=== PATIENT | male | born 1990 | race Caucasian/White ===

== ENCOUNTER 2016-11-12 20:50 | Emergency (ER) | payer BC, OTHER ==
--- NOTE | 2016-11-12 20:58 | PDOC ---
History of Present Illness - General History Source: Patient Exam Limitations: No Limitations - History of Present Illness Initial Comments: 11/12/16 21:07 The patient is a 25 year old male, with no significant past medical history, who presents to the emergency room with a laceration on the 2nd finger of the right hand prior to arrival. The patient states he was doing dishes and cut his 2nd finger on a knife in the sink. The patient states the bleeding was controlled prior to ED arrival and denies he is in any pain. 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 He denies numbness or loss of sensation. He denies loss of consciousness, headache or dizziness. He denies recent nausea or vomit. He denies chest pain or shortness of breath. Allergies: NKA PCP: Patient reports he does not have a primary doctor. <Yinka Mariscal - Last Filed: 11/12/16 21:18> <Corine Salazar - Last Filed: 11/12/16 21:37> - General Chief Complaint: Laceration Stated Complaint: RT 2ND FINGER LACERATION Time Seen by Provider: 11/12/16 20:58 Past History <Yinka Mariscal - Last Filed: 11/12/16 21:18> <Corine Salazar - Last Filed: 11/12/16 21:37> - Past Medical History Allergies/Adverse Reactions: Allergies Allergy/AdvReac Type Severity Reaction Status Date / Time No Known Allergies Allergy Verified 11/12/16 20:53 Home Medications: Ambulatory Orders Cephalexin Monohydrate [Keflex -] 500 mg PO BID #8 capsule 11/12/16 Review of Systems - Review of Systems Comments:: 11/12/16 21:18 GENERAL/CONSTITUTIONAL: No fever or chills. No weakness. HEAD, EYES, EARS, NOSE AND THROAT: No change in vision. No ear pain or discharge. No sore throat. CARDIOVASCULAR: No chest pain or shortness of breath. RESPIRATORY: No cough, wheezing, or hemoptysis. GASTROINTESTINAL: No nausea, vomiting, diarrhea or constipation. GENITOURINARY: No dysuria, frequency, or change in urination. MUSCULOSKELETAL: No joint or muscle swelling or pain. No neck or back pain. SKIN: No rash NEUROLOGIC: No headache, vertigo, loss of consciousness, or change in strength/ sensation. ENDOCRINE: No increased thirst. No abnormal weight change. HEMATOLOGIC/LYMPHATIC: No anemia, easy bleeding, or history of blood clots. ALLERGIC/IMMUNOLOGIC: No hives or skin allergy. <Yinka Mariscal - Last Filed: 11/12/16 21:18> *Physical Exam - Vital Signs Last Vital Signs Temp Pulse Resp BP Pulse Ox 98.5 F 74 18 121/79 99 11/12/16 20:50 11/12/16 20:50 11/12/16 20:50 11/12/16 20:50 11/12/16 20:50 - Physical Exam Comments: 11/12/16 21:18 GENERAL: Awake, alert, and fully oriented, in no acute distress HEAD: No signs of trauma EYES: PERRLA, EOMI, sclera anicteric, conjunctiva clear ENT: Auricles normal inspection, hearing grossly normal, nares patent, oropharynx clear without exudates. Moist mucosa NECK: Normal ROM, supple, no lymphadenopathy, JVD, or masses EXTREMITIES: +Laceration on 2nd finger of right hand. Normal range of motion, no edema. No clubbing or cyanosis. NEUROLOGICAL: Cranial nerves II through XII grossly intact. Normal speech, normal gait SKIN: Warm, Dry, normal turgor, no rashes or lesions noted. <Yinka Mariscal - Last Filed: 11/12/16 21:18> Medical Decision Making - Medical Decision Making 11/12/16 21:34 Pt cut his right index finger while washing a knife that he had been cutting veggies with. He has a linear laceration at the lateral distal aspect of the 2nd finger. Pt has a 1cm lac. No active bleed. Pt is refusing suture repair. We will place it in a fingersplint immobilization; bacitracin and keflex and XR is normal; no bony involvement. Follow with PMD as needed. Return for redness swelling infection worsening pain. <Corine Salazar - Last Filed: 11/12/16 21:37> *DC/Admit/Observation/Transfer - Attestations Scribe Attestion: 11/12/16 21:18 Documentation prepared by Yinka Mariscal, acting as neuropsychology medical consultant for Corine Salazar MD. <Yinka Mariscal - Last Filed: 11/12/16 21:18> - Discharge Dispostion Admit: No <Corine Salazar - Last Filed: 11/12/16 21:37> Diagnosis at time of Disposition: Finger laceration - Discharge Dispostion Disposition: HOME Condition at time of disposition: Stable - Prescriptions Prescriptions: Cephalexin Monohydrate [Keflex -] 500 mg PO BID #8 capsule - Patient Instructions Printed Discharge Instructions: How to Care for a Laceration After Repair, How to Care for a Laceration Prior to Repair
[2016-11-12 20:59] VITALS: BP 121/79; PULSE 74; TEMP 98.5; BMI 22.4
[2016-11-12] MEDS ORDERED: BACITRACIN 15 GM TUBE TOPICAL OINTMENT TP ONE (20:59)
[2016-11-12] MEDS ORDERED: CEPHALEXIN MONOHYDRATE 500 MG CAPSULE (UD) PO ONE (21:17)
[2016-11-12] MEDS ORDERED: CEPHALEXIN MONOHYDRATE 500 MG CAPSULE (UD) ONE (21:18)
== END 2016-11-12 21:30 | disposition home or self-care (01) ==
LOC: FER 20:50
PROC: 2W3JX1Z Immobilization of Right Finger using Splint (ICD-10-PCS; principal; 2016-11-12)
DX: S61.210A Laceration without foreign body of right index finger without damage to nail, initial encounter (principal); W25.XXXA Contact with sharp glass, initial encounter; Y93.G1 Activity, food preparation and clean up; Y92.9 Unspecified place or not applicable
CPT/HCPCS: 73140-TC-RT; 99283-25

== ENCOUNTER 2023-03-31 17:15 | Emergency (ER) | payer BC, OTHER ==
[2023-03-31 17:25] VITALS: BP 138/86; PULSE 72; RESP 18; TEMP 98.3; BMI 23.5
[2023-03-31] MEDS ORDERED: CEPHALEXIN MONOHYDRATE 500 MG CAPSULE (UD) ONE ×2 (17:37→17:50)
[2023-03-31] MEDS ORDERED: DIPHTH,PERTUSS(ACELL),TET 0.5 ML DISP.SYRIN IM ONE (17:37)
[2023-03-31] MEDS: CEPHALEXIN MONOHYDRATE 500 MG CAPSULE (UD) PO ONE (17:43)
[2023-03-31] MEDS: DIPHTH,PERTUSS(ACELL),TET 0.5 ML DISP.SYRIN IM ONE (17:43)
== END 2023-03-31 17:53 | disposition home or self-care (01) ==
LOC: FER 17:15
PROC: 0HQGXZZ Repair Left Hand Skin, External Approach (ICD-10-PCS; principal; 2023-03-31)
PROC: 3E0234Z Introduction of Serum, Toxoid and Vaccine into Muscle, Percutaneous Approach (ICD-10-PCS; 2023-03-31)
DX: S61.412A Laceration without foreign body of left hand, initial encounter (principal); W27.8XXA Contact with other nonpowered hand tool, initial encounter
CPT/HCPCS: 90715; 99283-25

== ENCOUNTER 2023-04-10 17:30 | Emergency (ER) | payer BC ==
[2023-04-10 17:35] VITALS: BP 119/75; PULSE 66; RESP 18; TEMP 98.6; BMI 23.1
== END 2023-04-10 17:45 | disposition home or self-care (01) ==
LOC: FER 17:30
DX: Z48.02 Encounter for removal of sutures (principal)
CPT/HCPCS: 99281-25